=== PATIENT | male | born 1990 | race Caucasian/White ===

== ENCOUNTER 2019-03-28 13:11 | Emergency (ER) | payer OTHER ==
[~2019-03-28] VITALS: Ht 172.7 cm; Wt 65.3 kg
[2019-03-28 13:28] VITALS: Ht 172.7 cm; Wt 65.3 kg
[2019-03-28 16:47] VITALS: BP 124/93
== END 2019-03-28 17:48 | disposition home or self-care (01) ==
LOC: ED 13:11
DX: S86.911A Strain of unspecified muscle(s) and tendon(s) at lower leg level, right leg, initial encounter (principal); S93.401A Sprain of unspecified ligament of right ankle, initial encounter; S93.601A Unspecified sprain of right foot, initial encounter; S50.311A Abrasion of right elbow, initial encounter; M25.561 Pain in right knee; E11.9 Type 2 diabetes mellitus without complications; V28.4XXA Motorcycle driver injured in noncollision transport accident in traffic accident, initial encounter; Y93.I9 Activity, other involving external motion; Y92.488 Other paved roadways as the place of occurrence of the external cause; Y99.8 Other external cause status
CPT/HCPCS: 90715